=== PATIENT | female | born 1965 | race African-American/Black ===

== ENCOUNTER 2022-05-05 04:56 | Day surgery (SDC) | payer OTHER ==
[2022-05-01 15:20] VITALS: BMI 21.9
[2022-05-05 12:07] VITALS: TEMP 97.3
[2022-05-05 13:06] VITALS: BP 132/74; PULSE 61; RESP 17
== END 2022-05-05 12:13 | disposition home or self-care (01) ==
LOC: JASU-ENDO 04:56
PROVIDERS: ATTEND Internal Medicine Gastroenterology
PROC: 0DBL8ZX Excision of Transverse Colon, Via Natural or Artificial Opening Endoscopic, Diagnostic (ICD-10-PCS; principal; 2022-05-05 10:45)
DX: Z12.11 Encounter for screening for malignant neoplasm of colon (principal); D12.3 Benign neoplasm of transverse colon; K64.8 Other hemorrhoids
CPT/HCPCS: 88305-TC